=== PATIENT | female | born 1995 | race Hispanic/Latino ===

== ENCOUNTER 2018-08-15 08:00 | Outpatient (CLI) | payer OTHER ==
--- NOTE | 2018-08-15 08:45 | ULT ---
BILATERAL LIMITED BREAST ULTRASOUND: Date: 08/15/18 HISTORY: Palpable finding in the right breast at 3 o'clock and palpable finding in the left breast at 9 o'cloc k. 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 In the left breast, in the region of palpable concern at 9 o'clock, there is a 1.1 x 1.8 x 1.5 cm cristian meter circumscribed hypoechoic mass, again having the appearance of a typical fibroadenoma. IMPRESSION: BIRADS Category 3 - Probably benign findings. Circumscribed hypoechoic masses accounting for palpable findings in the right breast at 3 o'clock and the left breast a 9 o'clock with typical appearance fo r fibroadenoma. A 6 month follow-up bilateral breast ultrasound is recommended for continued surveill ance. Findings were discussed with the patient, who was in agreement with proceeding to the 6 month short-t erm surveillance. POS: OFF
== END 2018-08-15 08:01 | disposition home or self-care (01) ==
LOC: BICULT 08:00
PROVIDERS: ATTEND Family Medicine
DX: N63.12 Unspecified lump in the right breast, upper inner quadrant (principal); N63.24 Unspecified lump in the left breast, lower inner quadrant